=== PATIENT | male | born 1975 | race American Indian/Alaskan Native ===

== ENCOUNTER 2019-06-14 13:35 | Emergency (ER) | payer MEDICAID, OTHER ==
[~2019-06-14] VITALS: Ht 175.3 cm; Wt 97.5 kg
[2019-06-14 15:03] VITALS: BP 136/87
[2019-06-14] MEDS ORDERED: KETOROLAC TROMETH 60MG/2ML VIAL IM ONE (16:15)
== END 2019-06-14 17:10 | disposition home or self-care (01) ==
LOC: ER 13:46
DX: S93.602A Unspecified sprain of left foot, initial encounter (principal); S76.012A Strain of muscle, fascia and tendon of left hip, initial encounter; S66.911A Strain of unspecified muscle, fascia and tendon at wrist and hand level, right hand, initial encounter; W19.XXXA Unspecified fall, initial encounter; Y93.89 Activity, other specified; Y99.8 Other external cause status; Y92.89 Other specified places as the place of occurrence of the external cause
CPT/HCPCS: 73502; 73630; 96372; 99283; J1885

== ENCOUNTER 2022-04-24 18:53 | Emergency (ER) | payer MEDICAID ==
[~2022-04-24] VITALS: Ht 175.3 cm; Wt 77.3 kg
[2022-04-24] MEDS ORDERED: SODIUM CHLORIDE 0.9% 500 ML IVB ONE (20:30)
[2022-04-24 21:11] VITALS: BP 118/87
[2022-04-24 21:25] LABS: Basophils # (auto) 0.1 10 ^3/uL (0-0.2); Eosinophils # (auto) 0.1 10 ^3/uL (0-0.8); Hematocrit 42.3 % (41.0-53.0); Lymphocytes # (auto) 1.3 10 ^3/uL (0.4-5.4); Monocytes # (auto) 0.7 10 ^3/uL (0-1.3); Neutrophils # (auto) 4.6 10 ^3/uL (1.6-8.6); Nucleated Red Blood Cells % 0.2 %; Red Cell Distribution Width 15.6 % (11.8-14.3); White Blood Cell 6.7 10^3/uL (4.4-10.8)
[2022-04-24 21:28] LABS: Basophils % (auto) 0.9 % (0.0-2.0); Hemoglobin 13.7 g/dL (13.5-17.5); Lymphocytes % (auto) 19.5 % (10.0-50.0); Mean Corpuscular Hemoglobin 26.1 pg (28.0-32.0); Mean Corpuscular Hgb Conc. 32.5 g/dL (32.0-36.0); Mean Corpuscular Volume 80.4 fL (80.0-100.0); Monocytes % (auto) 9.8 % (0.0-12.0); Neutrophils % (auto) 68.8 % (37.0-80.0); Red Blood Cells 5.26 10^6/uL (4.5-5.90)
[2022-04-24 21:42] LABS: Albumin 3.6 g/dL (3.4-5.0); Magnesium 2.1 mg/dL (1.6-2.6); Potassium 3.7 mmol/L (3.5-5.1)
[2022-04-24 21:46] LABS: BUN/Creatinine Ratio 13.5; Bilirubin, Total 0.7 mg/dL (0.2-1.0); Total Protein 7.5 g/dL (6.4-8.2)
== END 2022-04-24 23:22 | disposition home or self-care (01) ==
LOC: ER 19:02
DX: R06.6 Hiccough (principal); R53.2 Functional quadriplegia; J45.909 Unspecified asthma, uncomplicated; C72.0 Malignant neoplasm of spinal cord
CPT/HCPCS: 36415; 80053; 83690; 83735; 85025

== ENCOUNTER 2024-01-05 20:12 | Inpatient (IN) | payer OTHER, MEDICAID ==
[~2024-01-05] VITALS: Ht 175.3 cm; Wt 92.8 kg
[2024-01-05 21:46] LABS: Basophils # (auto) 0.1 10 ^3/uL (0-0.2); Basophils % (auto) 0.4 % (0.0-2.0); Eosinophils # (auto) 0 10 ^3/uL (0-0.8); Hematocrit 48.4 % (41.0-53.0); Hemoglobin 16.4 g/dL (13.5-17.5); Lymphocytes # (auto) 1.9 10 ^3/uL (0.4-5.4); Lymphocytes % (auto) 8.3 % (10.0-50.0); Mean Corpuscular Hemoglobin 28.8 pg (28.0-32.0); Mean Corpuscular Hgb Conc. 33.8 g/dL (32.0-36.0); Mean Corpuscular Volume 85.1 fL (80.0-100.0); Monocytes # (auto) 1.6 10 ^3/uL (0-1.3); Monocytes % (auto) 7.1 % (0.0-12.0); Neutrophils # (auto) 18.8 10 ^3/uL (1.6-8.6); Neutrophils % (auto) 84.2 % (37.0-80.0); Platelet Count (auto) 417 10^3/uL (140-450); Red Blood Cells 5.69 10^6/uL (4.5-5.90); Red Cell Distribution Width 14.6 % (11.8-14.3); White Blood Cell 22.3 10^3/uL (4.4-10.8)
[2024-01-05 22:18] LABS: Alanine Aminotransferase 25 U/L (7-40); Albumin 4.9 g/dL (3.2-4.8); Alkaline Phosphatase 86 U/L (46-116); Anion Gap 7 (5-15); Aspartate Aminotransferase 12 U/L (13-40); BUN/Creatinine Ratio 17.3 (10.0-20.0); Bilirubin, Total 0.7 mg/dL (0.2-1.0); Blood Urea Nitrogen 13 mg/dL (9-23); Calcium 10.2 mg/dL (8.7-10.4); Carbon Dioxide 25 mmol/L (20-30); Chloride 104 mmol/L (98-107); Glucose 126 mg/dL (74-106); Lipase 43 U/L (12-53); Sodium 136 mmol/L (136-145)
[2024-01-05] MEDS: SODIUM CHLORIDE 0.9% 1,000 ML IV ONE (22:26)
[2024-01-05] MEDS: MORPHINE SULFATE 4 MG/ML SYR/VIAL IV ONE (22:45)
[2024-01-05] MEDS: ONDANSETRON HCL 4 MG/2 ML VIAL IV ONE (22:45)
[2024-01-05] MEDS: PIPERACILLIN-TAZO 4.5GM 100 ML IV ONE (22:45)
[2024-01-05] MEDS: IOHEXOL 300 MG/ML 100ML BOTTLE IJ ONE (23:01)
[2024-01-05 23:40] VITALS: PULSE 68; RESP 17; O2SAT 98
[2024-01-06 01:14] LABS: Urine Bacteria MOD /hpf (None Seen); Urine Blood 1+ /uL (Negative); Urine Budding Yeast MANY /hpf (None Seen); Urine Clarity Ex.Turbid (Clear); Urine Color Light-Brown (Yellow); Urine Mucus FEW (None Seen); Urine Protein, UAD 2+ (Negative); Urine Specific Gravity 1.018 (1.001-1.035); Urine Sperm PRESENT /hpf (None Seen); Urine Urobilinogen Normal (Negative); Urine WBC 2126 /hpf (0 - 3); Urine WBC Clumps PRESENT /hpf (None Seen)
[2024-01-06] MEDS ORDERED: ACETAMINOPHEN 325 MG TAB PO PRN (01:30)
[2024-01-06] MEDS ORDERED: ONDANSETRON HCL 4 MG/2 ML VIAL IV PRN (01:30)
[2024-01-06] MEDS ORDERED: HYDROcodone-ACET 5/325MG TAB PO PRN (01:30)
[2024-01-06] MEDS: PANTOPRAZOLE 40 MG/10 ML VIAL INJ IV ONE (03:59)
[2024-01-06] MEDS: PANTOPRAZOLE 80 MG in SODIUM CHL 0.9% 100 ML IV ONE (04:04)
[2024-01-06] MEDS: PANTOPRAZOLE 40mg/50ML NS AE 50 ML IV ONE (04:31)
[2024-01-06] MEDS: SODIUM CHLORIDE 0.9% 1,000 ML IV SCH (04:36)
[2024-01-06 05:08] LABS: Basophils # (auto) 0.1 10 ^3/uL (0-0.2); Basophils % (auto) 0.8 % (0.0-2.0); Eosinophils # (auto) 0 10 ^3/uL (0-0.8); Eosinophils % (auto) 0.2 % (0.0-7.0); Hematocrit 41.4 % (41.0-53.0); Lymphocytes # (auto) 2.5 10 ^3/uL (0.4-5.4); Lymphocytes % (auto) 12.6 % (10.0-50.0); Mean Corpuscular Hgb Conc. 33.7 g/dL (32.0-36.0); Monocytes # (auto) 1.9 10 ^3/uL (0-1.3); Monocytes % (auto) 9.5 % (0.0-12.0); Neutrophils # (auto) 15.1 10 ^3/uL (1.6-8.6); Neutrophils % (auto) 76.9 % (37.0-80.0); Nucleated Red Blood Cells % 0.1 %; Platelet Count (auto) 339 10^3/uL (140-450); Red Blood Cells 4.82 10^6/uL (4.5-5.90); Red Cell Distribution Width 14.7 % (11.8-14.3); White Blood Cell 19.6 10^3/uL (4.4-10.8)
[2024-01-06 05:25] LABS: Alanine Aminotransferase 23 U/L (7-40); Albumin 4.2 g/dL (3.2-4.8); Alkaline Phosphatase 79 U/L (46-116); Anion Gap 8 (5-15); Aspartate Aminotransferase 23 U/L (13-40); BUN/Creatinine Ratio 19.2 (10.0-20.0); Bilirubin, Total 0.8 mg/dL (0.2-1.0); Blood Urea Nitrogen 15 mg/dL (9-23); Calcium 9.7 mg/dL (8.7-10.4); Carbon Dioxide 24 mmol/L (20-30); Chloride 104 mmol/L (98-107); Glucose 107 mg/dL (74-106); Potassium 4.7 mmol/L (3.5-5.1); Sodium 136 mmol/L (136-145); Total Protein 6.9 g/dL (5.7-8.2)
[2024-01-06] MEDS: PIPERACILLIN-TAZOB 3.375GM 100 ML IV SCH (06:29)
[2024-01-06] MEDS ORDERED: MORPHINE SULFATE INJ 2 MG/ml SYRG IV PRN (06:30)
[2024-01-06] MEDS ORDERED: NITROGLYCERIN 0.4 MG SL TAB SL PRN (06:30)
[2024-01-06 07:25] VITALS: PULSE 102; RESP 20; O2SAT 95
[2024-01-06 07:30] LABS: Amphetamine Screen, Urine Neg (NEGATIVE); Barbiturate Scree,Urine Neg (NEGATIVE); Benzodiazephine Screen, Urine Pos (NEGATIVE); Cannabinoid Screen, Urine Pos (NEGATIVE); Cocaine Screen, Urine Neg (NEGATIVE); Opiate Scree,Urine Neg (NEGATIVE); Phencyclidine Screen, Urine Neg (NEGATIVE)
[2024-01-06 09:40] VITALS: BP 127/76; PULSE 86; RESP 16; TEMP 97.8; O2SAT 97
[2024-01-06] MEDS ORDERED: PANTOPRAZOLE 40 MG/10 ML VIAL INJ IV SCH (10:00)
[2024-01-06 10:10] VITALS: PULSE 86; RESP 16; O2SAT 97
[2024-01-06] MEDS ORDERED: BACL20TA PO (10:52)
[2024-01-06] MEDS ORDERED: BUPR200T2 PO (10:52)
[2024-01-06] MEDS ORDERED: PREG50CA PO (10:53)
[2024-01-06] MEDS ORDERED: ESCI5TAB PO (10:53)
[2024-01-06] MEDS ORDERED: DIA5T PO (10:54)
[2024-01-06] MEDS ORDERED: SILD50TA PO (10:58)
[2024-01-06] MEDS ORDERED: PANT40TA57 PO (11:00)
[2024-01-06] MEDS ORDERED: OXYB5TAB14 PO (11:02)
[2024-01-06] MEDS ORDERED: PERCOT PO (11:03)
[2024-01-06] MEDS ORDERED: CYCL-837 PO (11:03)
[2024-01-06] MEDS ORDERED: ATOR10TA52 PO (11:04)
[2024-01-06] MEDS ORDERED: DEXT20CA PO (11:05)
[2024-01-06] MEDS: PANTOPRAZOLE 40 MG/10 ML VIAL INJ IV SCH (11:36)
[2024-01-06] MEDS: SUCRALFATE 1 GM/10 ML ORAL SUSP PO SCH (11:36)
[2024-01-06 13:29] LABS: Hematocrit 41.6 % (41.0-53.0); Hemoglobin 14.2 g/dL (13.5-17.5)
[2024-01-06 13:46] LABS: INR 1.1 (0.9-1.15); Partial Thromboplastin Time 29.8 SEC (24.5-34.5); Prothrombin Time 11.6 sec (9.3-11.8)
[2024-01-06] MEDS: MORPHINE SULFATE INJ 2 MG/ml SYRG IV PRN (14:28)
[2024-01-06 20:00] VITALS: PULSE 94; RESP 18; O2SAT 98
[2024-01-06 21:00] VITALS: BP 110/71; PULSE 95; RESP 16; TEMP 99.5; O2SAT 93
[2024-01-06] MEDS: OXYBUTYNIN CHL 5 MG TAB PO SCH (21:30)
[2024-01-07] VITALS (8 sets, daily range): BP systolic 105–145; BP diastolic 63–105; PULSE 79–100; RESP 17–19; TEMP 97.9–98.5; O2SAT 93–98
[2024-01-07] MEDS: buPROPion HCL 100 MG TAB PO SCH (05:44)
[2024-01-07] MEDS: DOCUSATE SOD 100 MG CAP PO PRN (05:47)
[2024-01-07 06:53] LABS: Basophils # (auto) 0.1 10 ^3/uL (0-0.2); Basophils % (auto) 0.8 % (0.0-2.0); Eosinophils # (auto) 0 10 ^3/uL (0-0.8); Eosinophils % (auto) 0.3 % (0.0-7.0); Hematocrit 42.5 % (41.0-53.0); Hemoglobin 14.2 g/dL (13.5-17.5); Lymphocytes # (auto) 1.8 10 ^3/uL (0.4-5.4); Lymphocytes % (auto) 15.8 % (10.0-50.0); Mean Corpuscular Hgb Conc. 33.5 g/dL (32.0-36.0); Mean Corpuscular Volume 86.5 fL (80.0-100.0); Monocytes # (auto) 0.8 10 ^3/uL (0-1.3); Monocytes % (auto) 6.5 % (0.0-12.0); Neutrophils # (auto) 8.9 10 ^3/uL (1.6-8.6); Neutrophils % (auto) 76.6 % (37.0-80.0); Nucleated Red Blood Cells % 0.1 %; Platelet Count (auto) 332 10^3/uL (140-450); Red Blood Cells 4.92 10^6/uL (4.5-5.90); Red Cell Distribution Width 14.5 % (11.8-14.3); White Blood Cell 11.6 10^3/uL (4.4-10.8)
[2024-01-07 07:04] LABS: Alanine Aminotransferase 20 U/L (7-40); Alkaline Phosphatase 78 U/L (46-116); Anion Gap 4 (5-15); Calcium 9.2 mg/dL (8.7-10.4); Carbon Dioxide 27 mmol/L (20-30); Chloride 104 mmol/L (98-107); Potassium 3.3 mmol/L (3.5-5.1); Sodium 135 mmol/L (136-145)
[2024-01-07 07:05] LABS: Aspartate Aminotransferase 10 U/L (13-40); Glucose 113 mg/dL (74-106)
[2024-01-07 07:06] LABS: BUN/Creatinine Ratio 9.9 (10.0-20.0); Blood Urea Nitrogen 8 mg/dL (9-23)
[2024-01-07 07:07] LABS: Albumin 3.9 g/dL (3.2-4.8)
[2024-01-07 07:08] LABS: Bilirubin, Total 0.8 mg/dL (0.2-1.0); Total Protein 6.7 g/dL (5.7-8.2)
[2024-01-07] MEDS: POTASSIUM EFFERVESENT TAB 25 MEQ GT ONE (16:25)
[2024-01-07] MEDS: LACTULOSE 20Gm/30ML SOLN PO SCH (20:13)
[2024-01-07] MEDS ORDERED: PATIENTS OWN MEDICATION PO SCH (22:00)
[2024-01-08] VITALS (9 sets, daily range): BP systolic 116–134; BP diastolic 80–89; PULSE 68–95; RESP 13–20; TEMP 97.6–98.5; O2SAT 91–100
[2024-01-08] MEDS: NUEDEXTA PO SCH (09:51)
[2024-01-08] MEDS ORDERED: MIDAZOLAM HCL 2MG/2ML 2ml VIAL (1mg/ml) ONE (12:48)
[2024-01-08] MEDS ORDERED: fentaNYL CITRATE 100 MCG/2 ML VL ONE (12:48)
[2024-01-08] MEDS ORDERED: MEPERIDINE HCL (25 MG/ML) 1ML VIAL ONE (12:48)
[2024-01-08] MEDS ORDERED: PROPOFOL 10 MG/ML 20 ML IV ONE (12:54)
[2024-01-08] MEDS ORDERED: DexAMETHasone SOD PHOS 10MG/1ML VIAL INJ ONE (12:54)
[2024-01-08 14:14] LABS: Basophils # (auto) 0.1 10 ^3/uL (0-0.2); Basophils % (auto) 0.8 % (0.0-2.0); Eosinophils # (auto) 0.2 10 ^3/uL (0-0.8); Eosinophils % (auto) 2.3 % (0.0-7.0); Hemoglobin 13.8 g/dL (13.5-17.5); Lymphocytes # (auto) 1.5 10 ^3/uL (0.4-5.4); Lymphocytes % (auto) 16.2 % (10.0-50.0); Mean Corpuscular Hemoglobin 28.8 pg (28.0-32.0); Mean Corpuscular Hgb Conc. 33.7 g/dL (32.0-36.0); Mean Corpuscular Volume 85.6 fL (80.0-100.0); Monocytes # (auto) 0.5 10 ^3/uL (0-1.3); Monocytes % (auto) 5.6 % (0.0-12.0); Neutrophils # (auto) 6.8 10 ^3/uL (1.6-8.6); Neutrophils % (auto) 75.1 % (37.0-80.0); Platelet Count (auto) 327 10^3/uL (140-450); Red Blood Cells 4.79 10^6/uL (4.5-5.90); Red Cell Distribution Width 14.2 % (11.8-14.3)
[2024-01-08 14:28] LABS: Alanine Aminotransferase 18 U/L (7-40); Albumin 3.7 g/dL (3.2-4.8); Alkaline Phosphatase 70 U/L (46-116); Anion Gap 5 (5-15); Aspartate Aminotransferase 10 U/L (13-40); Calcium 9.1 mg/dL (8.7-10.4); Carbon Dioxide 25 mmol/L (20-30); Chloride 110 mmol/L (98-107); Glucose 88 mg/dL (74-106); Potassium 3.7 mmol/L (3.5-5.1); Sodium 140 mmol/L (136-145)
[2024-01-08 14:29] LABS: Bilirubin, Total 0.5 mg/dL (0.2-1.0); Blood Urea Nitrogen < 5 mg/dL (9-23); Total Protein 6.3 g/dL (5.7-8.2)
[2024-01-08] MEDS: METOCLOPRAMIDE HCL 5MG/ml INJ 2ml VIAL IV ONE (20:00)
[2024-01-09 00:40] VITALS: BP 128/80; PULSE 88; RESP 18; TEMP 98.2; O2SAT 96
[2024-01-09 05:00] VITALS: BP 136/93; PULSE 83; RESP 18; TEMP 98.4; O2SAT 98
[2024-01-09 06:34] LABS: Chloride 104 mmol/L (98-107); Potassium 3.1 mmol/L (3.5-5.1); Sodium 138 mmol/L (136-145)
[2024-01-09 06:35] LABS: Anion Gap 10 (5-15); Calcium 9.4 mg/dL (8.7-10.4); Carbon Dioxide 24 mmol/L (20-30)
[2024-01-09 06:40] LABS: Blood Urea Nitrogen 8 mg/dL (9-23); Glucose 65 mg/dL (74-106)
[2024-01-09 06:56] LABS: Basophils # (auto) 0 10 ^3/uL (0-0.2); Basophils % (auto) 0.1 % (0.0-2.0); Eosinophils # (auto) 0 10 ^3/uL (0-0.8); Eosinophils % (auto) 0.1 % (0.0-7.0); Hematocrit 39.7 % (41.0-53.0); Hemoglobin 13.6 g/dL (13.5-17.5); Lymphocytes # (auto) 1.5 10 ^3/uL (0.4-5.4); Lymphocytes % (auto) 12.4 % (10.0-50.0); Mean Corpuscular Hemoglobin 29.5 pg (28.0-32.0); Mean Corpuscular Hgb Conc. 34.4 g/dL (32.0-36.0); Mean Corpuscular Volume 85.9 fL (80.0-100.0); Monocytes # (auto) 0.9 10 ^3/uL (0-1.3); Monocytes % (auto) 7.3 % (0.0-12.0); Neutrophils # (auto) 9.4 10 ^3/uL (1.6-8.6); Neutrophils % (auto) 80.1 % (37.0-80.0); Nucleated Red Blood Cells % 0.1 %; Platelet Count (auto) 427 10^3/uL (140-450); Red Blood Cells 4.62 10^6/uL (4.5-5.90); Red Cell Distribution Width 14.2 % (11.8-14.3); White Blood Cell 11.8 10^3/uL (4.4-10.8)
[2024-01-09 07:48] VITALS: BP 129/88; PULSE 92; RESP 18; TEMP 98.4; O2SAT 93
[2024-01-09 08:00] VITALS: PULSE 89; PULSE 92; RESP 18; O2SAT 93
[2024-01-09] MEDS ORDERED: SUCR1TAB31 OR (11:01)
[2024-01-09] MEDS ORDERED: PANT40TA2 PO (11:01)
[2024-01-09] MEDS ORDERED: FLUC200T PO (11:09)
[2024-01-09] MEDS: POTASSIUM CHL 20 Meq TABLET PO ONE (12:35)
[2024-01-09 13:09] VITALS: BP 125/81; PULSE 91; RESP 17; TEMP 98.3; O2SAT 94
== END 2024-01-09 18:00 | disposition home or self-care (01) | DRG 871 ==
LOC: ER 20:12 → TELE 01-06 06:31 → TELE-CENTR 01-06 10:02
PROVIDERS: ADMIT Nurse Practitioner Family; ATTEND Internal Medicine Geriatric Medicine
PROC: 0DB68ZX Excision of Stomach, Via Natural or Artificial Opening Endoscopic, Diagnostic (ICD-10-PCS; 2024-01-08)
PROC: 0DB58ZX Excision of Esophagus, Via Natural or Artificial Opening Endoscopic, Diagnostic (ICD-10-PCS; 2024-01-08)
PROC: 0DB98ZX Excision of Duodenum, Via Natural or Artificial Opening Endoscopic, Diagnostic (ICD-10-PCS; principal; 2024-01-08 12:43)
DX: A41.9 Sepsis, unspecified organism (principal); K21.01 Gastro-esophageal reflux disease with esophagitis, with bleeding; K22.11 Ulcer of esophagus with bleeding; G82.20 Paraplegia, unspecified; B37.41 Candidal cystitis and urethritis; K29.00 Acute gastritis without bleeding; R73.9 Hyperglycemia, unspecified; F41.9 Anxiety disorder, unspecified; F32.A Depression, unspecified; K44.9 Diaphragmatic hernia without obstruction or gangrene; G89.29 Other chronic pain; E87.6 Hypokalemia; Z85.848 Personal history of malignant neoplasm of other parts of nervous tissue
CPT/HCPCS: 36415; 71045; 71260; 74177; 76705; 80048; 80053; 80307; 81001; 83605; 83690; 83735; 84484; 85014; 85018; 85025; 85610; 85730; 87040; 87086; 96361; 96365; 96367; 96368; 96375; G0378; J1100; J2250; J2405; J2470; J2543; J2704